=== PATIENT | male | born 1995 | race Caucasian/White ===

== ENCOUNTER 2017-07-10 09:24 | Emergency (ER) | payer OTHER ==
[2017-07-10 10:09] VITALS: BP 127/67
[2017-07-10] MEDS ORDERED: Acetaminophen TAB* 325 MG PO ONE (11:02)
--- NOTE | 2017-07-10 11:08 | UC ---
Throat Pain/Nasal Sharath HPI - HPI Summary HPI Summary: Pt presents with 2 days of body aches, sinus congestion, sore throat. Pt denies fevers + chills. + cough no wheeze, no productive. No SOB. No rash. No LEON, vision changes. Pt's SO with similar sx. Pt smokes 1ppd No influenza vaccine. Pt's medications reviewed this visit. - History of Current Complaint Chief Complaint: UCRespiratory Stated Complaint: SORE THROAT CONGESTION COUGH Time Seen by Provider: 07/10/17 10:56 Hx Obtained From: Patient Onset/Duration: Gradual Onset Severity: Mild - Allergies/Home Medications Allergies/Adverse Reactions: Allergies Allergy/AdvReac Type Severity Reaction Status Date / Time No Known Allergies Allergy Verified 07/10/17 10:07 PMH/Surg Hx/FS Hx/Imm Hx Previously Healthy: Yes - Surgical History Surgical History: Yes Surgery Procedure, Year, and Place: Neck and back surgery, Tonsilectomy - Family History Known Family History: Positive: Hypertension, Diabetes - Social History Occupation: Student - online classes Lives: With Family Alcohol Use: Occasionally Substance Use Type: None Substance Use Comment - Amount & Last Used: rare Smoking Status (MU): Heavy Every Day Tobacco Smoker Type: Smokeless Tobacco Amount Used/How Often: 1/2 ppd Length of Time of Smoking/Using Tobacco: 13 yrs Have You Smoked in the Last Year: Yes When Did the Patient Quit Smoking/Using Tobacco: 1 month ago Household Exposure Type: Cigarettes Review of Systems Constitutional: Chills, Fatigue ENT: Sore Throat, Nasal Discharge, Sinus Congestion Respiratory: Cough All Other Systems Reviewed And Are Negative: Yes Physical Exam Triage Information Reviewed: Yes Appearance: Well-Appearing, No Pain Distress, Well-Nourished Vital Signs: Initial Vital Signs Temp 98.1 F 07/10/17 10:04 Pulse 75 07/10/17 10:04 Resp 14 07/10/17 10:04 BP 127/67 07/10/17 10:04 Pulse Ox 99 07/10/17 10:04 Vital Signs Reviewed: Yes Eye Exam: Normal Eyes: Positive: Conjunctiva Clear ENT Exam: Normal ENT: Positive: Normal ENT inspection, Hearing grossly normal, Nasal congestion, Uvula midline, Other - right TM mild fluid no erythema, no retraction turbinates inflammed and boggy + PND + erythema, uvula midline mmmoist no exudate. Negative: Tonsillar swelling, Tonsillar exudate Dental Exam: Normal Neck exam: Normal Neck: Positive: Supple, Nontender, No Lymphadenopathy Respiratory Exam: Normal Respiratory: Positive: Chest non-tender, Lungs clear, Normal breath sounds, No respiratory distress, No accessory muscle use Cardiovascular Exam: Normal Cardiovascular: Positive: RRR, No Murmur Abdominal Exam: Normal Bowel Sounds: Positive: Present Musculoskeletal Exam: Normal Neurological Exam: Normal Psychological Exam: Normal Skin Exam: Normal Re-Evaluation - Re-Evaluation First Eval Comment: pt's flu neg. SO also pt with + flu. will start prophylaxis Throat Pain/Nasal Course/Dx - Course Course Of Treatment: Pt presents with 2 days nasal congestion, sore throat and fatigue. SO with similar sx. will test for flu and strep. apap. reassess. pt in agreement with plan - Differential Dx/Diagnosis Provider Diagnoses: viral syndrome. flu exposure Discharge - Discharge Plan Condition: Stable Disposition: HOME Referrals: Jaelyn Chase MD [Primary Care Provider] - Additional Instructions: - Stay well hydrated. Drink plenty of non-alcoholic, non-caffinated beverages - Alternate ibuprofen (Advil, motrin) 600mg and tylenol every 3 hours for pain or fever - use nasal spray as instructed - take tamiflu as prescribed to try to prevent flu spread - These infections are spread by oral secretions. Do not share eating or drinking utensils. Frequent hand washing is important. Clean items that may get your secretions on them such as cell phones, ipads, computer mouse, television remotes - Once you start to feel better, change your pillowcase and your toothbrush - Work to decrease cigarette smoke - contact your doctor or return with questions or concerns
== END 2017-07-10 11:57 | disposition home or self-care (01) ==
LOC: UCCORT 09:24
DX: B34.9 Viral infection, unspecified (principal); Z20.818 Contact with and (suspected) exposure to other bacterial communicable diseases; Z72.89 Other problems related to lifestyle; Z87.891 Personal history of nicotine dependence
CPT/HCPCS: 87502; 87651; 99212; A9270-GY; G0463